=== PATIENT | male | born 1995 | race Caucasian/White ===

== ENCOUNTER 2018-02-11 01:40 | Emergency (ER) | payer OTHER ==
[~2018-02-11] VITALS: Ht 175.3 cm; Wt 62.2 kg
--- NOTE | 2018-02-11 02:20 | NUR ---
PT BACK FROM RAD. EKG BEING DONE AT THIS TIME.
[2018-02-11 03:14] VITALS: BP 109/57
== END 2018-02-11 03:17 | disposition home or self-care (01) ==
LOC: ED 02:05
DX: R06.00 Dyspnea, unspecified (principal); R07.89 Other chest pain; K21.9 Gastro-esophageal reflux disease without esophagitis; F17.200 Nicotine dependence, unspecified, uncomplicated
CPT/HCPCS: 71046; 93005; 99283